=== PATIENT | male | born 2005 | race Hispanic/Latino ===

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

== ENCOUNTER 2025-05-23 16:32 | Emergency (ER) | payer BC ==
[~2025-05-23] VITALS: Ht 165.1 cm; Wt 57.2 kg
[~2025-05-23 16:32] MED LIST: ACET-2247 PO
[2025-05-23 16:34] VITALS: BP 128/72; PULSE 73; RESP 18; TEMP 97.6
[2025-05-23 17:29] LABS: IMMATURE GRANULOCYTE ABSOLUTE 0.03 K/uL (0-1); NUCLEATED RED BLOOD CELLS 0.0 % (0.0-0.19); PLATELET COUNT (AUTO) 249 K/uL (130-400); RED BLOOD CELL COUNT(AUTO) 5.08 MIL/uL (4.50-6.20); RED CELL DISTRIBUTION WIDTH 11.8 % (11.0-15.5); WHITE BLOOD COUNT (AUTO) 10.5 K/uL (4.8-10.8)
[2025-05-23 17:37] LABS: CREATININE 0.9 mg/dL (0.5-1.3); GLOMERULAR FILTR. RATE CALC 125.0 mL/min (>90); GLUCOSE,RANDOM 95.0 mg/dL (70-105); SODIUM SERUM 139.0 mmol/L (136-145); UREA NITROGEN, BLOOD 13.0 mg/dL (7-18)
[2025-05-23] MEDS: CLINDAMYCIN 150 MG CAP PO ONE (18:27)
[2025-05-23] MEDS: LIDOCAINE HCL 1% 20 ML VIAL INJ SCH (18:28)
[2025-05-23] MEDS ORDERED: CLIN-141 PO (19:20)
--- NOTE | 2025-05-23 19:20 | ERN ---
ED Note History of Present Illness Stated Complaint: ABSCESS Chief Complaint: Abscess Time Seen by MD: 16:50 Time Seen by Midlevel: 16:50 Dictation: The patient is a 20-year-old male with no significant past medical history who presents to the emergency department with complaints of redness to left lower leg onset three days ago. Patient is not sure if something bit him and denies any injury. Patient also denies any fevers. Reports he is up-to-date with the his tetanus and gotten it a couple of years ago. Allergies: Coded Allergies: No Known Drug Allergies (Unverified Allergy, Unknown, 05/27/21) Home Meds Active Scripts Clindamycin HCl (Clindamycin HCl) 300 Mg Capsule, 1 CAP PO QID for 10 Days, #40 CAP 0 Refills Prov:SHANIA BURDEN [employer] OPERATOR 05/23/25 Acetaminophen (Tylenol) 325 Mg Tablet, 650 MG PO Q4HPRN, #50 TAB Prov:MARGA ALCANTARA PA 05/27/21 Past Medical History Past Medical History: No Pertinent History Surgical History: Tonsillectomy RN Note Reviewed/Agreed w/PFSH: Yes Review of System Dictation Constitutional: Negative for fever,chills, and weight loss Eyes: Negative for injury, pain,redness, and discharge ENT: Negative for injury,pain or swelling Cardiovascular: Negative for chest pain, palpitations, and edema Respiratory: Negative for shortness of breath, cough, and wheezing, Abdomen/GI: Negative for abdominal pain, nausea, vomiting, diarrhea, and constipation Back: Negative for injury and pain : Negative for injury, bleeding and discharge MS/Extremity: Negative for injury and deformity Skin: Wound to left lower leg Neuro: Negative for headache, weakness, numbness, tingling, and seizure Psych: Negative for suicide ideation, homicidal ideation, and hallucinations Initial Vital Sign VS Vital Signs Date Time Temp Pulse Resp B/P (MAP) Pulse Ox O2 Delivery O2 Flow Rate FiO2 05/23/25 16:34 97.5 73 18 128/72 100 Room Air 0 Physical Exam Dictation Vital Signs reviewed General Appearance: Alert, oriented x 3, no acute distress, well developed, nourished. Head and Face: non-traumatic. Eyes: PERRL, pink conjunctivas, eyelid no trauma, anterior chamber with arcus senilis. Ears: Pinnas intact and no signs of trauma or erythema ear canals clear and no discharge TM no erythema Nose: No discharge, no bleeding. Oropharynx: Mouth normal, tongue pink. pharynx clear,no erythema, tonsils no exudates, no abscesses noted, mucous membrane moist Neck: Supple, non-tender, no thyromegaly, no masses, no JVD, no bruits Breast:Deferred Chest:No tenderness, no crepitus, no paradoxical movement, no retractions Lungs:Clear, well-ventilated, symmetric, no rales, no wheezing, no rhonchi, no stridor, good breath sounds bilaterally Heart: Regular rate, regular rhythm, no murmur, no gallops Vascular: no peripheral edema, Abdomen: Soft, positive bowel sounds, nondistended, no guarding, nontender, no rebound, no masses no hepatomegaly, no splenomegaly, no Patton's sign, no hernias. Rectal: Deferred Genital: Deferred Neurological: Normal speech, motor function intact, sensory function intact Musculoskeletal: Neck nontender, full range of motion, back nontender, full range of motion, Extremities: nontender, full range of motion Skin: Color pink, dry, no turgor, no rash, no lacerations, no abrasions, no contusions. Erythema anteriorly to left calf, small abscess about 2.5 cm in diameter, no drainage Lymphatic: Deferred Results (Laboratory/Radiology) Laboratory/Radiology Laboratory Tests Test 05/23/25 17:21 White Blood Count 10.5 K/uL (4.8-10.8) Red Blood Count 5.08 MIL/uL (4.50-6.20) Hemoglobin 16.1 g/dL (14.0-18.0) Hematocrit 47.6 % (42-54) Mean Corpuscular Volume 93.7 fL (80-100) Mean Corpuscular Hemoglobin 31.7 pg (27.0-33.0) Mean Corpuscular Hemoglobin Concent 33.8 g/dL (32.0-36.0) Red Cell Distribution Width 11.8 % (11.0-15.5) Platelet Count 249 K/uL (130-400) Mean Platelet Volume 10.5 fL (7.5-10.5) Immature Granulocyte % (Auto) 0.3 % (0-1) Neutrophils (%) (Auto) 72.3 % (40.0-77.0) Lymphocytes (%) (Auto) 16.7 % (21.0-51.0) L Monocytes (%) (Auto) 9.0 % (3.0-13.0) Eosinophils (%) (Auto) 1.3 % (0.0-8.0) Basophils (%) (Auto) 0.4 % (0.0-5.0) Neutrophils # (Auto) 7.6 K/uL (1.8-7.7) Lymphocytes # (Auto) 1.8 K/uL (1.0-4.8) Monocytes # (Auto) 0.9 K/uL (0.1-1.0) Eosinophils # (Auto) 0.14 K/uL (0.00-0.70) Basophils # (Auto) 0.04 K/uL (0.00-0.20) Absolute Immature Granulocyte (auto 0.03 K/uL (0-1) Nucleated Red Blood Cells 0.0 % (0.0-0.19) Sodium Level 139 mmol/L (136-145) Potassium Level 4.1 mmol/L (3.5-5.1) Chloride Level 103 mmol/L (101-111) Carbon Dioxide Level 31 mmol/L (21-32) Blood Urea Nitrogen 13 mg/dL (7-18) Creatinine 0.9 mg/dL (0.5-1.3) Glomerular Filtration Rate Calc 125 mL/min (>90) Random Glucose 95 mg/dL (70-105) Total Calcium 8.9 mg/dL (8.5-10.1) Labs Reviewed?: Yes ED Course ED Course Orders Procedure Category Date Status Time Cbc With Differential LAB 05/23/25 Complete 16:59 Basic Metabolic Panel LAB 05/23/25 Complete 16:59 Ketorolac 60mg/2ml PHA 05/23/25 Complete (Toradol 60mg/2ml) 18:00 Clindamycin 150mg Cap PHA 05/23/25 Complete (Cleocin 150mg Cap 18:00 Lidocaine Hcl 1% 20ml PHA 05/23/25 Complete Vial (Lidocaine Hc 18:00 Current Medications Medications (Trade) Dose Ordered Sig/Nataliya Route PRN Reason Start Time Stop Time Status Last Admin Dose Admin Clindamycin HCl (Cleocin 150mg Cap) 300 mg ONCE ONCE PO 05/23/25 18:00 05/23/25 18:01 DC 05/23/25 18:27 Ketorolac Tromethamine (toRADol 60MG/ 2ML) 60 mg ONCE ONCE IM 05/23/25 18:00 05/23/25 18:01 DC 05/23/25 18:27 Lidocaine HCl (Lidocaine HCl 1% 20ml Vial) 10 ml ONCE INJ 05/23/25 18:00 05/23/25 19:26 DC 05/23/25 18:28 Vital Signs Date Time Temp Pulse Resp B/P (MAP) Pulse Ox O2 Delivery O2 Flow Rate FiO2 05/23/25 16:34 97.5 73 18 128/72 100 Room Air 0 Medical Decision Making MDM The patient is a 20-year-old male with no significant past medical history who presents to the emergency department with complaints of redness to left lower leg onset three days ago. Patient is not sure if something bit him and denies any injury. Patient also denies any fevers. Reports he is up-to-date with the his tetanus and gotten it a couple of years ago. CBC showed no leukocytosis, no anemia, chemistry showed no electrolyte imbalance, normal renal function. Patient with a a small abscess to left calf anteriorly with surrounding cellulitis. Abscess was drained and packed. Patient is started on antibiotics. Patient otherwise in no acute distress, nontoxic appearance, no fevers or tachycardia. Patient will be discharged on antibiotics and instructed to follow up with PCP. Differential diagnosis: Abscess, cellulitis, sepsis Need for hospitalization: Patient does not meet criteria for hospitalization. There are no social concerns with this patient. Procedure Procedure Dictation: Verbal consent for the procedure was obtained. A timeout protocol was performed prior to initiating the procedure. The area was prepared and draped in the usual, sterile manner. The site was anesthetized with 1% lidocaine without epinephrine. A 1cm linear incision along the local skin lines was made and the purulent material expressed. The abscess was explored thoroughly and sequestered pockets were opened. Bleeding was minimal. Packing: _ 1.5 The patient tolerated the procedure well without complications. Standard post- procedure care is explained and return precautions are given. DX & DISP Disposition: Discharge Departure Impression: Primary Impression: Cellulitis and abscess of left lower extremity Condition: Stable Scripts Clindamycin HCl (Clindamycin HCl) 300 Mg Capsule 1 CAP PO QID for 10 Days, #40 CAP 0 Refills Prov: SHANIA BURDEN SHEILA 05/23/25 Additional Instructions: Please take your medications as prescribed and until finished. Follow up with your primary doctor in 1-2 days. Change the dressing daily or more often if needed. Avoid any submerging in contaminated water. If your symptoms do not improve and worsen you develop fevers or the changes please return to ER. FOLLOW-UP WITH PRIMARY CARE PROVIDER IN 1 TO 2 DAYS. TAKE MEDICATIONS DIRECTED HERE IN THE EMERGENCY ROOM. OKAY TO CONTINUE HOME MEDICATIONS UNLESS OTHERWISE DISCUSSED DURING YOUR VISIT IN THE EMERGENCY ROOM TODAY. RETURN TO YOUR NEAREST EMERGENCY ROOM IF SYMPTOMS WORSEN OR IF THERE IS NO IMPROVEMENT. CALL 911 IF YOU NEED IMMEDIATE ASSISTANCE. TAKE TYLENOL [id number] NEEDED AND IF NO CONTRAINDICATIONS ARE PRESENT. INCREASE ORAL HYDRATION. A WOUND CULTURE OR URINE CULTURE WAS ORDERED HERE IN THE EMERGENCY ROOM DEPARTMENT PLEASE FOLLOW-UP WITH PRIMARY CARE PROVIDER AND ADVISE THEM TO GET REPEAT PORTS FROM OUR FACILITY. IF YOU HAD ANY ERNST WRAP/SPLINTS THAT WERE APPLIED HERE, PLEASE DO NOT REMOVE THEM UNTIL YOU SEE YOUR PRIMARY CARE OR SPECIALTY. Referrals: YVONNE WILLOUGHBY MD (PCP) Time of Disposition: 19:19 I have reviewed the case, and I agree with, Diagnosis and Plan SHANIA BURDEN SHEILA May 23, 2025 19:20
== END 2025-05-23 19:26 | disposition home or self-care (01) ==
LOC: EDH 16:32
DX: L02.416 Cutaneous abscess of left lower limb (principal); L03.116 Cellulitis of left lower limb; Z90.89 Acquired absence of other organs
CPT/HCPCS: 99284; 10060; 80048; 85025; 36415; 96372; J1885; J2003